=== PATIENT | female | born 1975 | race Caucasian/White ===

== ENCOUNTER 2019-10-07 15:14 | Emergency (ER) | payer MEDICAID ==
--- NOTE | 2019-10-07 15:49 | ERPHSYRPT ---
- History of Present Illness Time Seen by Provider: 10/07/19 15:20 Source: patient Exam Limitations: no limitations Patient Subjective Stated Complaint: Pt states "I was cleaning my ac unit two weeks ago and I think I got my wrist pinched. ever now and then it hurts and it has a little swelling." Triage Nursing Assessment: Pt presented alert and oriented X 3, skin pwd pt ambulates with an upright steady gait, able to speak in clear full sentences pt wearing a velcro splint on right wrist, no swelling noted, CSM X 4 Physician History: 44 years old female presented in the ER with chief complaint of right wrist pain for the last 2 weeks when she moved her AC unit which was pretty heavy. Since then she is having pain with lifting weight and doing exertion. 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 No swelling or limitation of movements reported. No finger numbness tingling. Patient has been using [id number] wrist splint which helps somewhat but pain is not completely going away. Occurred: days ago (14) Method of Injury: other Quality: intermittent, throbbing Severity of Pain-Max: moderate Severity of Pain-Current: none Extremities Pain Location: wrist: right Modifying Factors: Improves With: immobilization, movement, rest Associated Symptoms: none Allergies/Adverse Reactions: No Known Drug Allergies Allergy (Verified 10/07/19 15:26) Hx Tetanus, Diphtheria Vaccination/Date Given: No Hx Influenza Vaccination/Date Given: No Hx Pneumococcal Vaccination/Date Given: No Immunizations Up to Date: Yes Travel Risk - International Travel Have you traveled outside of the country in past 3 weeks: No - Coronavirus Screening Are you exhibiting any of the following symptoms?: No Close contact with a COVID-19 positive Pt in past 14-21 Days: No - Review of Systems Constitutional: No Symptoms Eyes: No Symptoms Ears, Nose, & Throat: No Symptoms Respiratory: No Symptoms Cardiac: No Symptoms Abdominal/Gastrointestinal: No Symptoms Musculoskeletal: Joint Pain Skin: No Symptoms Neurological: No Symptoms Psychological: No Symptoms Endocrine: No Symptoms Hematologic/Lymphatic: No Symptoms Immunological/Allergic: No Symptoms - Past Medical History Pertinent Past Medical History: Yes Female Reproductive Disorders: Other - Past Surgical History Past Surgical History: Yes Female Surgical History: Section, Lumpectomy, Tubal Ligation - Social History Smoking Status: Never smoker Exposure to second hand smoke: Yes Drug Use: none Patient Lives Alone: No - Female History Hx Now: No - Nursing Vital Signs Nursing Vital Signs: Initial Vital Signs Temperature 98.6 F 10/07/19 15:21 Pulse Rate 84 10/07/19 15:21 Respiratory Rate 20 10/07/19 15:21 Blood Pressure 129/76 10/07/19 15:21 O2 Sat by Pulse Oximetry 99 10/07/19 15:21 Pain Scale Pain Intensity 0 - Physical Exam General Appearance: no apparent distress Eyes, Ears, Nose, Throat Exam: normal ENT inspection, pharynx normal Neck Exam: normal inspection, full range of motion Cardiovascular/Respiratory Exam: normal breath sounds, regular rate/rhythm Wrist Exam: normal inspection, no evidence of injury, normal ROM, soft tissue tenderness (Dorsal wrist) Hand Exam: normal inspection, non-tender, no evidence of injury, normal ROM Neuro/Tendon Exam: normal sensation Mental Status Exam: alert, oriented x 3, cooperative Skin Exam: normal color SpO2 Interpretation: normal SpO2: 99 - Course Nursing assessment & vital signs reviewed: Yes Ordered Tests: Active Orders 24 hr Category Date Time Status WRIST (MIN 3 VIEWS) Stat Exams 10/07/19 15:32 Ordered - Progress Progress: unchanged Progress Note: Offered pain medicine which she refused. Ruled out fracture dislocation. I believe patient has wrist sprain. Recommended continuing with wrist splint and taking Tylenol ibuprofen as needed. Outpatient follow-up with Ortho clinic. 10/07/19 15:49 Counseled pt/family regarding: diagnosis, need for follow-up, rad results - Departure Departure Disposition: Home Clinical Impression: Right wrist sprain Qualifiers: Encounter type: initial encounter Qualified Code(s): S63.501A - Unspecified sprain of right wrist, initial encounter Condition: Stable Critical Care Time: No Referrals: ELENA MCKAY MD [Primary Care Provider] - Follow Up with PCP/3 days SERVANDO MARTINEZ NP [NON-STAFF PHY W/O PRIVILEGES] - Follow Up with PCP/3 days Instructions: Common Wrist Injuries (DC), Wrist Sprain (DC) Additional Instructions: Tylenol/ibuprofen as needed. Keep the wrist splint on. Follow-up with primary care and Ortho clinic for reevaluation. Return to ER for any worsening. Prescriptions: Ibuprofen 600 mg PO Q6HPRN PRN 10 Days #20 tablet PRN Reason: Pain
--- NOTE | 2019-10-07 16:11 | XRAY ---
Exam: 3 view right wrist series from 10/07/2019. Comparison: 3 view right hand series from 09/18/2010. Indication: 44-year-old female with no known injury, complains of right wrist pain for a couple weeks after moving a window air conditioner unit. Findings: AP, oblique, and lateral radiographs of the right wrist were obtained. I see no acute fracture or dislocation. A slight negative ulnar variance is seen. The radiocarpal joint space appears unremarkable. The carpal scaphoid bone appears intact. The remainder of the carpal joint spaces appear within normal limits. Impression: 1. No evidence of right wrist fracture or dislocation.
[2019-10-07 16:21] VITALS: BP 124/70; PULSE 88; O2SAT 98
== END 2019-10-07 16:29 | disposition home or self-care (01) ==
LOC: ED 15:14
DX: S63.501S Unspecified sprain of right wrist, sequela (principal); M25.531 Pain in right wrist; X50.0XXS Overexertion from strenuous movement or load, sequela
CPT/HCPCS: 73110; 99283

== ENCOUNTER 2022-08-01 10:50 | Day surgery (SDC) | payer MEDICAID, OTHER ==
--- NOTE | 2022-08-01 08:49 | HP ---
DATE OF SURGERY: 08/01/2022 HISTORY OF PRESENT ILLNESS: The patient is a 46-year-old female with small amount of blood from skin scraping. No bloody stools now. No change in bowel movements. Some constipation. No new pain. Family history negative for colon cancer. No prior colonoscopy. She is in need of screening colonoscopy. PAST MEDICAL HISTORY: Sinus infections. PAST SURGICAL HISTORY: section on the past. Tubal in the past. Mesh removal in the past. MEDICATIONS: Multivitamin, aspirin, ibuprofen. ALLERGIES: NKDA. FAMILY HISTORY: Hypertension, arthritis, prostate cancer, skin cancer. Negative for colon cancer. SOCIAL HISTORY: No alcohol abuse. REVIEW OF SYSTEMS: Fourteen systems reviewed. No chest pain or palpitations. Other systems negative or noncontributory as above and per preadmission questionnaire. PHYSICAL EXAMINATION: BMI 27.98. Height 5' 4". GENERAL: No acute distress. HEENT: Sclerae nonicteric. EOMI. Oral mucous membranes moist. NECK: No JVD. CHEST: Equal excursion, nonlabored breathing. CVS: Regular rate and rhythm. ABDOMEN: Soft, nontender. EXTREMITIES: No significant edema. NEURO: Alert, moving extremities symmetrically. RECTAL: Deferred timed to endoscopy exam. PSYCH: Appropriate mood and affect. SKIN: Dry. IMPRESSION: No prior colonoscopy. The patient is in need of screening colonoscopy. I feel she is a candidate. Risks and benefits explained in detail including but not limited to bleeding or infection, risk of bowel injury or perforation possibly requiring further procedure, risk of missed or nondiagnosis or incomplete exam possibly requiring barium enema, other studies or procedures, general risk of anesthesia or sedation, risk of bowel prep but not limited to, consent obtained. Will proceed with outpatient screening colonoscopy.
[2022-08-01 11:06] LABS: HCG URINE TEST NEGATIVE (NEGATIVE)
[2022-08-01] MEDS ORDERED: Lactated Ringers 1,000 ML IV ONE (11:21)
[2022-08-01] MEDS ORDERED: Lactated Ringers 1,000 ML IV SCH (11:30)
[2022-08-01] MEDS ORDERED: Xylocaine-Mpf 2% 5 Ml Vial ONE (12:26)
[2022-08-01] MEDS ORDERED: DIPRIVAN 200 MG/20 ML IV ONE (12:26)
[2022-08-01 13:18] VITALS: O2SAT 98
[2022-08-01 13:40] VITALS: BP 129/93; PULSE 72
--- NOTE | 2022-08-01 14:32 | OP ---
SURGERY DATE/TIME: 08/01/2022 1228 PREOPERATIVE DIAGNOSIS: Need for screening colonoscopy. POSTOPERATIVE DIAGNOSES: 1) Very small early polyp versus hyperplastic lesion versus hyperplasia mucosa rectum x2. 2) Good prep. 3) Withdrawal time eight minutes. PROCEDURES: 1) Colonoscopy to cecum. 2) Hot biopsy polypectomy small very early polyp versus hyperplastic lesion, hyperplasia of mucosa in rectum x2. SURGEON: Dr. Robin John. ANESTHESIA: MAC. ESTIMATED BLOOD LOSS: Minimal. INDICATIONS: As noted above. Risks and benefits explained in detail but not limited to and consent obtained. DESCRIPTION OF PROCEDURE AND FINDINGS: The patient is taken to the endoscopy room. MAC anesthesia induced. After official time out and no disagreement with planned procedure, digital rectal exam did not reveal any rectal masses. Video colonoscope inserted and passed up through the slightly tortuous sigmoid, descending, transverse and ascending colon. Appendiceal orifice and valve well visualized and photo documented. Palpation right lower quadrant confirmed location. The scope is carefully withdrawn over the next eight minutes. Prep overall was good. Just a little bit of liquid throughout the colon but overall good prep. The scope is slowly and carefully withdrawn over the next eight minutes. There were no signs of any large polyps, masses or obstructing lesions. There were two very tiny 1.5 mm early polyps versus hyperplastic lesions, hyperplasia mucosa in the rectum removed with hot biopsy forceps. Good hemostasis noted. There was no family available to discuss the findings with. The patient tolerated the procedure well. There were no immediate complications.
== END 2022-08-01 14:20 | disposition home or self-care (01) ==
LOC: SDC 10:50
PROVIDERS: ATTEND Surgery
DX: Z12.11 Encounter for screening for malignant neoplasm of colon (principal); K62.1 Rectal polyp; Z80.42 Family history of malignant neoplasm of prostate
CPT/HCPCS: 36415; 81025; J2704